=== PATIENT | male | born 1940 | race Caucasian/White ===

== ENCOUNTER 2016-10-18 14:59 | Inpatient (IN) | payer MEDICARE, BC ==
[~2016-10-18] VITALS: Ht 182.9 cm; Wt 142.6 kg
[2016-10-18] MEDS ORDERED: Furosemide 40 MG/4 ML VIAL ONE (17:42)
[2016-10-18] MEDS ORDERED: ACETAMINOPHEN 325 MG TAB PO PRN (18:40)
[2016-10-18] MEDS ORDERED: BISACODYL EC 5 MG TAB PO PRN (18:40)
[2016-10-18] MEDS ORDERED: MAG HYDROX 30 ML UDC PO PRN (18:40)
[2016-10-18] MEDS ORDERED: BISACODYL 10 MG SUPP RECTAL PRN (18:40)
[2016-10-18] MEDS ORDERED: SALINE FLUSH 10 ML FLUSH PRN (18:40)
[2016-10-18] MEDS ORDERED: DEXTROSE 50% SYRINGE 50 ML IV PRN (18:40)
[2016-10-18] MEDS ORDERED: GLUCAGON 1 MG VIAL IM PRN (18:40)
[2016-10-18 20:58] VITALS: BP_SYST 142; BP_SYST 144; RESP 18; TEMP 97.6
[2016-10-18] MEDS: DORZOL/TIM 2%-0.5% 10 ML EYE EACH SCH (21:00)
[2016-10-18] MEDS ORDERED: NEB-ALBUTEROL 2.5 MG/3 ML INH PRN (21:05)
[2016-10-18] MEDS: APIXABAN 5 MG TAB PO SCH (21:59)
[2016-10-18] MEDS: Atorvastatin 20 MG TAB PO SCH (21:59)
[2016-10-18] MEDS: CARVEDILOL 25 MG TAB PO SCH (21:59)
[2016-10-18] MEDS: amLODIPine 5 MG TAB PO SCH (22:00)
[2016-10-18] MEDS: GABAPENTIN 300 MG CAP PO SCH (22:02)
[2016-10-18] MEDS ORDERED: MISSING DOSE XX ONE (22:15)
[2016-10-18 23:40] VITALS: BP_SYST 132; RESP 18; TEMP 97.8
[2016-10-18] MEDS: DUONEB INH SCH (23:57)
[2016-10-19 00:03] VITALS: RESP 18
[2016-10-19] MEDS ORDERED: METOLAZONE 2.5 MG TAB PO ONE (00:35)
[2016-10-19] MEDS: SALINE FLUSH 10 ML FLUSH SCH ×3 (01:11→20:00)
[2016-10-19] MEDS: KCL CR 20 MEQ TAB PO SCH ×3 (01:13→21:01)
[2016-10-19 04:15] VITALS: BP_SYST 132; RESP 18; TEMP 97.4
[2016-10-19] MEDS: SODIUM CHLORIDE 0.9% FLUSH BAG 500 ML IV SCH (06:00)
[2016-10-19 07:43] VITALS: BP_SYST 170; RESP 18; TEMP 97
[2016-10-19] MEDS: DUONEB INH SCH ×4 (07:55→23:31)
[2016-10-19] MEDS: Furosemide 100 MG/10 ML VIAL IV SCH ×2 (08:07→17:40)
[2016-10-19] MEDS ORDERED: MISSING DOSE XX ONE (08:15)
[2016-10-19] MEDS: CARVEDILOL 25 MG TAB PO SCH ×2 (08:38→21:01)
[2016-10-19] MEDS: Losartan 50 MG TAB PO SCH (08:38)
[2016-10-19] MEDS: amLODIPine 5 MG TAB PO SCH (08:38)
[2016-10-19] MEDS: APIXABAN 5 MG TAB PO SCH ×2 (08:38→21:01)
[2016-10-19] MEDS: DORZOL/TIM 2%-0.5% 10 ML EYE EACH SCH ×2 (08:39→21:03)
[2016-10-19] MEDS: TRAVOPROST Z 0.004% EYE EACH SCH (08:39)
[2016-10-19] MEDS ORDERED: BUMETANIDE 1 MG/4 ML VIAL IV SCH (09:00)
[2016-10-19 10:42] VITALS: BP_SYST 142; RESP 18; TEMP 97.6
[2016-10-19 13:40] VITALS: Ht 182.9 cm; Wt 142.6 kg
[2016-10-19 15:22] VITALS: BP_SYST 136; RESP 18; TEMP 97.5
[2016-10-19] MEDS ORDERED: METOLAZONE 5 MG TAB PO ONE (19:25)
[2016-10-19] MEDS ORDERED: KCL CR 20 MEQ TAB PO ONE (19:25)
[2016-10-19 20:00] VITALS: BP_SYST 152; RESP 18; TEMP 97.8
[2016-10-19] MEDS: GABAPENTIN 300 MG CAP PO SCH (21:01)
[2016-10-19] MEDS: Atorvastatin 20 MG TAB PO SCH (21:01)
[2016-10-19] MEDS: BACITRACIN OINT TOPICAL SCH (21:04)
[2016-10-20] VITALS (7 sets, daily range): BP systolic 122–150; RESP 16–20; TEMP 96.8–98.2
[2016-10-20] MEDS: SODIUM CHLORIDE 0.9% FLUSH BAG 500 ML IV SCH (05:34)
[2016-10-20] MEDS: DUONEB INH SCH ×4 (07:27→23:21)
[2016-10-20] MEDS: TRAVOPROST Z 0.004% EYE EACH SCH ×2 (09:00→21:02)
[2016-10-20] MEDS: DORZOL/TIM 2%-0.5% 10 ML EYE EACH SCH ×2 (09:28→21:01)
[2016-10-20] MEDS: SALINE FLUSH 10 ML FLUSH SCH ×2 (09:30→21:02)
[2016-10-20] MEDS: Furosemide 100 MG/10 ML VIAL IV SCH ×2 (09:30→17:12)
[2016-10-20] MEDS: amLODIPine 5 MG TAB PO SCH (09:32)
[2016-10-20] MEDS: CARVEDILOL 25 MG TAB PO SCH ×2 (09:32→21:01)
[2016-10-20] MEDS: KCL CR 20 MEQ TAB PO SCH ×2 (09:32→21:01)
[2016-10-20] MEDS: Losartan 50 MG TAB PO SCH (09:32)
[2016-10-20] MEDS ORDERED: MISSING DOSE XX ONE (09:40)
[2016-10-20] MEDS: APIXABAN 5 MG TAB PO SCH ×2 (10:49→21:01)
[2016-10-20] MEDS: BACITRACIN OINT TOPICAL SCH ×2 (15:00→21:09)
[2016-10-20] MEDS: Atorvastatin 20 MG TAB PO SCH (21:01)
[2016-10-20] MEDS: GABAPENTIN 300 MG CAP PO SCH (21:01)
[2016-10-21 02:50] VITALS: BP_SYST 124; RESP 18; TEMP 97.4
[2016-10-21] MEDS: SODIUM CHLORIDE 0.9% FLUSH BAG 500 ML IV SCH (06:00)
[2016-10-21 07:21] VITALS: BP_SYST 116; RESP 16; TEMP 97
[2016-10-21] MEDS: DUONEB INH SCH ×3 (07:34→19:34)
[2016-10-21] MEDS: Furosemide 100 MG/10 ML VIAL IV SCH ×2 (08:37→16:44)
[2016-10-21] MEDS: SALINE FLUSH 10 ML FLUSH SCH ×2 (08:37→20:34)
[2016-10-21] MEDS: CARVEDILOL 25 MG TAB PO SCH ×2 (08:38→19:58)
[2016-10-21] MEDS: KCL CR 20 MEQ TAB PO SCH ×2 (08:38→19:58)
[2016-10-21] MEDS: APIXABAN 5 MG TAB PO SCH ×2 (08:38→19:58)
[2016-10-21] MEDS: amLODIPine 5 MG TAB PO SCH (08:38)
[2016-10-21] MEDS: Losartan 50 MG TAB PO SCH (08:38)
[2016-10-21] MEDS: DORZOL/TIM 2%-0.5% 10 ML EYE EACH SCH ×2 (08:39→19:58)
[2016-10-21] MEDS: BACITRACIN OINT TOPICAL SCH ×2 (08:39→21:00)
[2016-10-21] MEDS ORDERED: CLONIDINE TRANSDERM SCH (09:00)
[2016-10-21 11:09] VITALS: BP_SYST 118; RESP 18; TEMP 96.8
[2016-10-21 15:27] VITALS: BP_SYST 130; RESP 18; TEMP 97.4
[2016-10-21] MEDS: humaLOG MIX 75/25 INSULIN SUBQ SCH (16:43)
[2016-10-21] MEDS ORDERED: humaLOG MIX 75/25 INSULIN SUBQ SCH (17:00)
[2016-10-21] MEDS: GABAPENTIN 300 MG CAP PO SCH (19:58)
[2016-10-21] MEDS: Atorvastatin 20 MG TAB PO SCH (19:58)
[2016-10-21] MEDS: TRAVOPROST Z 0.004% EYE EACH SCH (19:58)
[2016-10-21 20:10] VITALS: BP_SYST 128; RESP 18; TEMP 97.6
[2016-10-21 23:17] VITALS: BP_SYST 110; RESP 18; TEMP 96.1
[2016-10-22] MEDS: DUONEB INH SCH ×5 (00:08→23:37)
[2016-10-22 02:53] VITALS: BP_SYST 120; RESP 16; TEMP 97.2
[2016-10-22] MEDS: SODIUM CHLORIDE 0.9% FLUSH BAG 500 ML IV SCH (04:06)
[2016-10-22 07:20] VITALS: BP_SYST 110; RESP 18; TEMP 98.4
[2016-10-22] MEDS: humaLOG MIX 75/25 INSULIN SUBQ SCH ×2 (08:00→17:00)
[2016-10-22] MEDS: Furosemide 100 MG/10 ML VIAL IV SCH ×2 (08:04→17:26)
[2016-10-22] MEDS: BACITRACIN OINT TOPICAL SCH ×2 (08:05→20:51)
[2016-10-22] MEDS: Losartan 50 MG TAB PO SCH ×2 (08:05→20:50)
[2016-10-22] MEDS: APIXABAN 5 MG TAB PO SCH ×2 (08:05→20:50)
[2016-10-22] MEDS: KCL CR 20 MEQ TAB PO SCH ×2 (08:05→20:50)
[2016-10-22] MEDS: amLODIPine 5 MG TAB PO SCH (08:05)
[2016-10-22] MEDS: SALINE FLUSH 10 ML FLUSH SCH ×2 (08:07→20:51)
[2016-10-22] MEDS: DORZOL/TIM 2%-0.5% 10 ML EYE EACH SCH ×2 (08:07→20:50)
[2016-10-22 11:11] VITALS: BP_SYST 120; RESP 18; TEMP 97.5
[2016-10-22] MEDS: METOPROLOL XL 25 MG TAB PO SCH (12:55)
[2016-10-22] MEDS: SPIRONOLACTONE 25 MG TAB PO SCH (12:55)
[2016-10-22 15:28] VITALS: BP_SYST 124; RESP 18; TEMP 97.8
[2016-10-22 19:00] VITALS: BP_SYST 126; RESP 18; TEMP 97.9
[2016-10-22] MEDS: GABAPENTIN 300 MG CAP PO SCH (20:50)
[2016-10-22] MEDS: Atorvastatin 20 MG TAB PO SCH (20:50)
[2016-10-22] MEDS: TRAVOPROST Z 0.004% EYE EACH SCH (20:50)
[2016-10-22 23:00] VITALS: BP_SYST 124; RESP 18; TEMP 98.1
[2016-10-23] MEDS: SODIUM CHLORIDE 0.9% FLUSH BAG 500 ML IV SCH (04:54)
[2016-10-23 04:58] VITALS: BP_SYST 120; RESP 20; TEMP 96.9
[2016-10-23] MEDS: DUONEB INH SCH ×3 (06:54→19:59)
[2016-10-23 07:31] VITALS: BP_SYST 126; RESP 16; TEMP 97.7
[2016-10-23] MEDS: humaLOG MIX 75/25 INSULIN SUBQ SCH ×2 (07:36→17:52)
[2016-10-23] MEDS: SALINE FLUSH 10 ML FLUSH SCH ×2 (08:17→20:18)
[2016-10-23] MEDS: Losartan 50 MG TAB PO SCH ×2 (08:18→20:19)
[2016-10-23] MEDS: Furosemide 100 MG/10 ML VIAL IV SCH (08:18)
[2016-10-23] MEDS: DORZOL/TIM 2%-0.5% 10 ML EYE EACH SCH ×2 (08:18→20:18)
[2016-10-23] MEDS: APIXABAN 5 MG TAB PO SCH ×2 (08:18→20:18)
[2016-10-23] MEDS: METOPROLOL XL 25 MG TAB PO SCH (08:18)
[2016-10-23] MEDS: KCL CR 20 MEQ TAB PO SCH ×2 (08:18→20:20)
[2016-10-23] MEDS: SPIRONOLACTONE 25 MG TAB PO SCH (08:19)
[2016-10-23] MEDS: BACITRACIN OINT TOPICAL SCH ×2 (08:19→20:21)
[2016-10-23 11:06] VITALS: BP_SYST 140; RESP 18; TEMP 98.6
[2016-10-23 15:48] VITALS: BP_SYST 128
[2016-10-23] MEDS: Furosemide 40 MG TAB PO SCH (17:52)
[2016-10-23 20:00] VITALS: BP_SYST 120; RESP 16; TEMP 97.4
[2016-10-23] MEDS: TRAVOPROST Z 0.004% EYE EACH SCH (20:17)
[2016-10-23] MEDS: Atorvastatin 20 MG TAB PO SCH (20:19)
[2016-10-23] MEDS: GABAPENTIN 300 MG CAP PO SCH (20:20)
[2016-10-23 22:39] VITALS: BP_SYST 120; RESP 20; TEMP 98.1
[2016-10-24] MEDS: DUONEB INH SCH ×3 (00:26→11:45)
[2016-10-24 03:40] VITALS: BP_SYST 130; RESP 16; TEMP 97.7
[2016-10-24] MEDS: SODIUM CHLORIDE 0.9% FLUSH BAG 500 ML IV SCH (06:00)
[2016-10-24 07:26] VITALS: BP_SYST 148; RESP 18; TEMP 98.2
[2016-10-24] MEDS: humaLOG MIX 75/25 INSULIN SUBQ SCH ×2 (07:45→16:42)
[2016-10-24] MEDS: METOPROLOL XL 25 MG TAB PO SCH (08:36)
[2016-10-24] MEDS: Losartan 50 MG TAB PO SCH (08:36)
[2016-10-24] MEDS: Furosemide 40 MG TAB PO SCH ×2 (08:36→16:42)
[2016-10-24] MEDS: SPIRONOLACTONE 25 MG TAB PO SCH (08:36)
[2016-10-24] MEDS: KCL CR 20 MEQ TAB PO SCH (08:36)
[2016-10-24] MEDS: APIXABAN 5 MG TAB PO SCH (08:36)
[2016-10-24] MEDS: DORZOL/TIM 2%-0.5% 10 ML EYE EACH SCH (08:37)
[2016-10-24] MEDS: SALINE FLUSH 10 ML FLUSH SCH (08:39)
[2016-10-24 11:19] VITALS: BP_SYST 180; RESP 18; TEMP 98.1
[2016-10-24] MEDS: BACITRACIN OINT TOPICAL SCH (15:01)
[2016-10-24 15:03] VITALS: BP_SYST 178; RESP 18; TEMP 97.8
[2016-10-24 15:28] VITALS: BP_SYST 178; RESP 18; TEMP 97.8
== END 2016-10-24 17:21 | DRG 291 ==
LOC: ENRESERVDT → ENRESERVTM → ER 14:59 → EMR 19:03 → ENPENDDIS 19:03 → 4THE 20:24 → 4THW 20:25
PROVIDERS: ADMIT Family Medicine Addiction Medicine; ATTEND Family Medicine Addiction Medicine
DX: I13.0 Hypertensive heart and chronic kidney disease with heart failure and stage 1 through stage 4 chronic kidney disease, or unspecified chronic kidney disease (principal); I50.33 Acute on chronic diastolic (congestive) heart failure; E11.22 Type 2 diabetes mellitus with diabetic chronic kidney disease; E11.51 Type 2 diabetes mellitus with diabetic peripheral angiopathy without gangrene; Z68.41 Body mass index [BMI] 40.0-44.9, adult; L03.90 Cellulitis, unspecified; L03.119 Cellulitis of unspecified part of limb; N18.3 Chronic kidney disease, stage 3 (moderate); Z79.4 Long term (current) use of insulin; J44.9 Chronic obstructive pulmonary disease, unspecified; E88.81 Metabolic syndrome and other insulin resistance; E66.01 Morbid (severe) obesity due to excess calories; I48.2 Chronic atrial fibrillation; Z79.01 Long term (current) use of anticoagulants; I89.0 Lymphedema, not elsewhere classified; Z87.891 Personal history of nicotine dependence
CPT/HCPCS: 36415; 71010; 80048; 80053; 82947; 83880; 84484; 85025; 93306; 94640; 94799; 96374; 99223; 99233; 99239